=== PATIENT | female | born 1975 | race Caucasian/White ===

== ENCOUNTER 2020-09-13 07:45 | Outpatient (CLI) | payer BC, SELFPAY ==
--- NOTE | ~2020-09-13 | MM_ITS ---
EXAMINATION: MM screening olga lidia BI w chloé HISTORY: .. TECHNIQUE: Craniocaudal and mediolateral oblique 3-D tomosynthesis images were obtained and synthetic 2-D images were generated. CAD analysis was submitted and interpreted. COMPARISON: No prior mammogram is available for comparison at this institution. BREAST PARENCHYMAL COMPOSITION: FINDINGS: There is no evidence of suspicious mass, calcification, or architectural distortion to sugg est malignancy in either breast. There has been no suspicious interval change. IMPRESSION: 1. No mammographic evidence of malignancy. 2. Recommend routine screening mammography in one year. BI-RADS Category 1: Negative Reviewed, dictated and finalized at location A. COORDINATOR
== END 2020-09-13 07:46 | disposition home or self-care (01) ==
LOC: ANHIMG 07:47
PROVIDERS: PCP Internal Medicine; Visit Provider Obstetrics & Gynecology
DX: Z12.31 Encounter for screening mammogram for malignant neoplasm of breast (principal)
CPT/HCPCS: 77063; 77067

== ENCOUNTER 2021-03-16 10:18 | Outpatient (CLI) | payer OTHER, SELFPAY ==
[2021-03-16 10:41] LABS: Hematocrit 43.6 % (37.0-47.0); Hemoglobin 13.7 g/dL (12.0-15.0)
== END 2021-03-16 10:19 | disposition home or self-care (01) ==
LOC: ANHSURGERY 10:24
PROVIDERS: PCP Internal Medicine; Visit Provider Obstetrics & Gynecology
DX: Z01.818 Encounter for other preprocedural examination (principal); N95.0 Postmenopausal bleeding
CPT/HCPCS: 36415; 85014; 85018

== ENCOUNTER 2021-03-23 00:37 | Day surgery (SDC) | payer OTHER, SELFPAY ==
[2021-03-14 10:21] VITALS: BMI 31.8
--- NOTE | 2021-03-20 12:17 | PM.IMHP ---
H&P: HPI History of Present Illness Date/Time: 03/20/21 12:17 [age] year 0 is several years postmenopausal admitted for hysteroscopy and dilatation. she had episode of bleeding and underwent ultrasound. Thickened endometrium with irregularity was seen. Risks and benefits of this procedure reviewed including but not exclusive of , aspiration pneumonia, bleeding, transfusion, perforation injury to bowel bladder, ureters, or other internal organs with need for open laparotomy. She received the ACOG handout entitled hysteroscopy and dilatation and curettage respectively. She had all questions answered asked to proceed Chief Complaint: postmenopausal bleeding Review of Systems Review of Systems: All systems reviewed & are unremarkable except as noted in HPI and below PMFSH Family History Family History Mother Family history of psoriasis Family history of elevated blood lipids Other Cerebrovascular accident Diabetes mellitus Family history of malignant neoplasm Hypertension Social History Social History Smoking status: Never smoker Alcohol intake: current Substance use: never Spiritual care concerns: No Meds Home Medications and Allergies Home Medications Medication Instructions Recorded Confirmed Type Drenamin 3 tablet PO BID 03/14/21 03/14/21 History jeromy extract 3,000 mg PO DAILY 03/14/21 03/14/21 History organ concentrates [Adrenal] 160 mg PO DAILY 03/14/21 03/14/21 History prasterone (dhea) [DHEA] 25 mg PO DAILY 03/14/21 03/14/21 History Allergies Allergy/AdvReac Type Severity Reaction Status Date / Time No Known Allergies Allergy Mild Unverified 03/14/21 10:12 Exam Const: General: no acute distress Eyes: General: appearance normal, both eyes and all related structures Neck: Neck: supple and no JVD Thyroid: thyroid normal Resp: Effort & Inspection: normal respiratory effort Auscultation: clear to auscultation bilaterally Cardio: Rate: regular rate Rhythm: regular rhythm GI: Inspection: non-distended GI Palp: Yes Soft to palpation, No Tenderness to palpation present (GI) and No Guarding due to palpation present (GI) Auscultation: normal bowel sounds : General: Yes bladder normal to palpation External Female Exam: normal external appearance Speculum Exam - Vagina: normal vaginal discharge and No vaginal bleeding Speculum Exam - Cervix: nontender Bimanual exam- vagina & uterus: bladder normal to palpation and No Cervical tenderness present OB/external & speculum: No vaginal bleeding Skin: General skin exam: no rashes or lesions noted Extrem: General: normal to inspection and no edema Psych: Mental Status: mental status grossly normal Affect: normal affect Assessment and Plan Additional Plan impression: Postmenopausal bleeding Plan: Hysteroscopy / dilatation curettage
--- NOTE | 2021-03-23 05:53 | WPDHPUPDATE1 ---
History and Physical Update Update Date/Time: 03/23/21 05:53 History and Physical has been reviewed, including an updated exam of the patient. There are NO changes in the patient's condition. Risks, benefits, and alternatives have been discussed and questions answered. Patient agrees to proceed with procedure.
[2021-03-23] MEDS: LACTATED RINGERS 1,000 ML 30 ML IV CONT (12:15)
[2021-03-23] MEDS: ACETAMINOPHEN 500 MG TABLET 1000 MG PO (12:19)
--- NOTE | 2021-03-23 12:24 | WPDANESEPPF ---
Anes - Initial Pre Proc Eval Procedure: Operation Date: 03/23/21 13:30 Proposed Procedures p Hysteroscopy, Dilation and Curettage - Giovanni Blum MD Date/Time: 03/23/21 12:24 Surgeon: Giovanni Blum MD Pre Op Diagnosis: post menopausal bleeding Patient Data Age: 45 Gender: F Height: 1.57 m Weight: 79 kg Allergies Allergy/AdvReac Type Severity Reaction Status Date / Time No Known Allergies Allergy Mild Unverified 03/14/21 10:12 Home Medications Medication Instructions Recorded Confirmed Type Drenamin 3 tablet PO BID 03/14/21 03/14/21 History jeromy extract 3,000 mg PO DAILY 03/14/21 03/14/21 History organ concentrates [Adrenal] 160 mg PO DAILY 03/14/21 03/14/21 History prasterone (dhea) [DHEA] 25 mg PO DAILY 03/14/21 03/14/21 History hydrocodone-acetaminophen 1 tablet PO Q4H PRN #30 tablet 03/23/21 Rx Patient hx anesthesia problems: none Family hx anesthesia problems: none PMFSH Past Medical History Medical History (Updated 03/23/21 @ 12:23 by Chad Troncoso MD) Anemia GERD (gastroesophageal reflux disease) Hyperlipidemia Family History Family History Mother Family history of psoriasis Family history of elevated blood lipids Other Cerebrovascular accident Diabetes mellitus Family history of malignant neoplasm Hypertension Social History Social History Smoking status: Never smoker Alcohol intake: current Substance use: never Living arrangements: alone Spiritual care concerns: No Anes - Eval Final PreProcedure Day of Procedure 03/23/21 12:24 Patient weight: overweight Heart: regular rate and rhythm Lungs: clear to auscultation Airway: Mallampati scale class II Neurological: alert and oriented Last oral intake: >/= 8 hours ASA classification: II Emergent: no Anesthetic plan: proceed Anesthesia type and monitoring: general GIVS and standard monitoring Informed Consent: The patient's anesthetic plan and its attendant risks and benefits were discussed with the patient/family/POA. Questions were solicited and answers provided to the satisfaction of the patient/family/POA.
[2021-03-23 12:30] VITALS: BP 118/72; PULSE 66; RESP 14; TEMP 36.9; O2SAT 100; BMI 31.4
[2021-03-23 13:00] VITALS: BP 143/89; PULSE 68; RESP 16; O2SAT 96
--- NOTE | 2021-03-23 13:01 | P.OP_ITS ---
Procedure Note - Detailed Date of Procedure 03/23/21 Pre-op Diagnosis post menopausal bleeding Post-op Diagnosis same Procedure Performed Hysteroscopy / dilatation curettage Surgeon Giovanni Blum MD Anesthesia MAC and local Indications this is a 45-year-old patient who has not had a period in 2 years who e xperienced postmenopausal bleeding Findings a fair amount of the blood in the vagina without evidence of visual abnormalities Description of Procedure the patient was prepped and draped in normal sterile fashion placed in dorsal lithotomy position. Under excellent IV sedation weighted speculum placed in posterior fornix vagina. Anterior lip of the cervix grasped with a single-tooth tenaculum and 2.5cc 1% xylocaine anesthesia placed at 2, 4, and 8, 10:00 a.m. of the cervix. Uterus sounded to 9cm. Serial dilatation with fragmented dilators performed followed by passage of the 5mm visualizing hysteroscope. Normal saline was used as visualizing medium. Fair amount of old blood was present. After rinsing each fallopian tube os could be seen and no definitive abnormality seen. The uterus was then scraped over the entire 360? until a good grating sound was heard. When no further tissue could be removed the instruments removed. The patient tolerated the procedure well. All sponge, needle, instrument counts were correct. There were no immediate complications Estimated Blood Loss 5 Drains No Packing No Pathology yes Complications No immediate complications Condition stable Disposition same day
[2021-03-23 13:30] VITALS: BP 154/103; PULSE 66
[2021-03-23] MEDS: oxyCODONE HCL (*CRX) 5 MG TAB IR PO (13:32)
[2021-03-23 14:06] VITALS: BP 136/86; PULSE 64
== END 2021-03-23 14:30 | disposition home or self-care (01) ==
PROVIDERS: PCP Internal Medicine; Visit Provider Obstetrics & Gynecology
PROC: 0U5B8ZZ Destruction of Endometrium, Via Natural or Artificial Opening Endoscopic (ICD-10-PCS; CPT 58563; principal; 2021-03-23 13:30)
DX: N95.0 Postmenopausal bleeding (principal); N85.8 Other specified noninflammatory disorders of uterus; D64.9 Anemia, unspecified; K21.9 Gastro-esophageal reflux disease without esophagitis; E78.5 Hyperlipidemia, unspecified
CPT/HCPCS: 58558; 36415; 85014; 85018; 88305; A9270; J1100; J2250; J2405; J2704; J3010; J7120

== ENCOUNTER 2021-09-19 08:55 | Outpatient (CLI) | payer OTHER, SELFPAY ==
--- NOTE | ~2021-09-19 | MM_ITS ---
EXAMINATION: MM screening olga lidia BI w chloé HISTORY: Screening TECHNIQUE: Craniocaudal and mediolateral oblique 3-D tomosynthesis images were obtained and synthetic 2-D images were generated. CAD analysis was submitted and interpreted. COMPARISON: Comparison to multiple prior studies sequentially, with oldest reviewed study dated 11/2014. BREAST PARENCHYMAL COMPOSITION: Breast composed of scattered areas of fibroglandular density FINDINGS: There is no evidence of suspicious mass, calcification, or architectural distortion to sugg est malignancy in either breast. There has been no suspicious interval change. IMPRESSION: 1. No mammographic evidence of malignancy. 2. Recommend routine screening mammography in one year. BI-RADS Category 1: Negative Reviewed, dictated and finalized at location A. EYOR SYSTEM DISPATCHER
== END 2021-09-19 08:56 | disposition home or self-care (01) ==
LOC: ANHIMG 09:03
PROVIDERS: PCP Internal Medicine; Visit Provider Obstetrics & Gynecology
DX: Z12.31 Encounter for screening mammogram for malignant neoplasm of breast (principal)
CPT/HCPCS: 77063; 77067

== ENCOUNTER 2022-09-24 07:09 | Outpatient (CLI) | payer OTHER, SELFPAY ==
--- NOTE | ~2022-09-24 | MM_ITS ---
EXAMINATION: MM screening olga lidia BI w chloé HISTORY: Screening mammogram TECHNIQUE: Craniocaudal and mediolateral oblique 3-D tomosynthesis images were obtained and synthetic 2-D images were generated. CAD analysis was submitted and interpreted. COMPARISON: 09/19/2021, 09/13/2020, 09/09/2019 bilateral screening mammogram examinations BREAST PARENCHYMAL COMPOSITION: There are scattered areas of fibroglandular density. FINDINGS: There is no evidence of suspicious mass, calcification, or architectural distortion to sugg est malignancy in either breast. There has been no suspicious interval change. IMPRESSION: 1. No mammographic evidence of malignancy. 2. Recommend routine screening mammography in one year. BI-RADS Category 1: Negative Reviewed, dictated and finalized at location A. OR GRANTS OFFICER
== END 2022-09-24 07:10 | disposition home or self-care (01) ==
PROVIDERS: PCP Internal Medicine; Visit Provider Obstetrics & Gynecology
DX: Z12.31 Encounter for screening mammogram for malignant neoplasm of breast (principal)
CPT/HCPCS: 77063; 77067

== ENCOUNTER 2023-09-25 07:26 | Outpatient (CLI) | payer OTHER, SELFPAY ==
--- NOTE | ~2023-09-25 | MM_ITS ---
EXAMINATION: MM screening [facility] BI w chloé HISTORY: Screening mammogram TECHNIQUE: Craniocaudal and mediolateral oblique 3-D tomosynthesis images were obtained and synthetic 2-D images were generated. CAD analysis was submitted and interpreted. COMPARISON: 09/24/2022, 09/19/2021, 09/13/2020 BREAST PARENCHYMAL COMPOSITION: There are scattered areas of fibroglandular density. FINDINGS: No suspicious mass, calcification, or architectural distortion are identified in either shahram ast to suggest malignancy. There has been no suspicious interval change. IMPRESSION: 1. No mammographic evidence of malignancy. 2. Recommend routine screening mammography in one year. BI-RADS Category 1: Negative Reviewed, dictated and finalized at location A. OMETRIC TECHNICIAN
== END 2023-09-25 07:27 | disposition home or self-care (01) ==
PROVIDERS: PCP Internal Medicine; Visit Provider Obstetrics & Gynecology
DX: Z12.31 Encounter for screening mammogram for malignant neoplasm of breast (principal)
CPT/HCPCS: 77063; 77067

== ENCOUNTER 2024-10-12 07:14 | Outpatient (CLI) | payer OTHER, SELFPAY ==
--- NOTE | ~2024-10-12 | MM_ITS ---
EXAMINATION: MM screening olga lidia BI w chloé HISTORY: Screening TECHNIQUE: Craniocaudal and mediolateral oblique 3-D tomosynthesis images were obtained and synthetic 2-D images were generated. CAD analysis was submitted and interpreted. COMPARISON: Comparison to multiple prior studies sequentially, with oldest reviewed study dated 08/22. BREAST PARENCHYMAL COMPOSITION: Not dense: There are scattered areas of fibroglandular density. FINDINGS: There is no evidence of suspicious mass, calcification, or architectural distortion to sugg est malignancy in either breast. There has been no suspicious interval change. IMPRESSION: 1. No mammographic evidence of malignancy. 2. Recommend routine screening mammography in one year. BI-RADS Category 1: Negative Reviewed, dictated and finalized at location A. TIC WELDING OPERATOR
--- OUTSIDE RECORDS SUMMARY | 2024-10-14 15:32 | XMS_ITS | Referral Summary ---
Author Organization [facility] [address] [facility] Address [address] [place] [address] Care Team Providers Care Sound Editor Name Role Phone Hayden Monzon MD Primary Care Provider [phone] Allergies No known active allergies Medications silver sulfadiazine (SILVADENE, SSD) 1 % creamIndications: Partial thickness burn of abdomen, initial encounter Apply topically 2 (two) times a day 50 g 4 Active Active Problems Problem Noted Date Diagnosed Date Hypercholesterolemia 02/05/2014 Overview (12/25/2016): Hypercholesteremia Gastroesophageal reflux disease 02/05/2014 Overview (12/26/2016): GERD (gastroesophageal reflux disease) Atopic rhinitis 02/05/2014 Overview (12/26/2016): Allergic rhinitis Premature ovarian failure 02/05/2014 Overview (12/26/2016): Premature ovarian failure Immunizations Name Administration Dates Next Due Tdap 06/30/2024 Social History Tobacco Use Types Packs/Day Years Used Date Smoking Tobacco: Never Assessed Alcohol Use Standard Drinks/Week Comments Yes 0 (1 standard drink = 0.6 oz pur e alcohol) Comments Unknown Sex and Gender Information Value Date Recorded Sex Assigned at Not on file Legal Sex Female 8:02 PM DIRECTOR COMMERCIAL SALES Gender Identity Not on file Sexual Orientation Not on file Last Filed Vital Signs Vital Sign Reading Time Taken Comments Blood Pressure 124/74 06/30/2024 9:44 AM CDT Pulse 65 06/30/2024 9:44 AM CDT Temperature 36.6 ??C (97.8 ??F) 06/30/2024 9:44 AM C DT Respiratory Rate 18 06/30/2024 9:44 AM CDT Oxygen Saturation 97% 06/30/2024 9:44 AM CDT Inhaled Oxygen Concentration - - Weight 68 kg (150 lb) 06/30/2024 9:44 AM CDT Height 154.9 cm (5' 1 ) 06/30/2024 9:44 AM CDT Body Mass Index 28.34 06/30/2024 9:44 AM CDT Plan of Treatment Not on file Insurance [id number] [employer] Care Teams Sound Editor Relationship Specialty [place] [id number] [place] [address] PCP - General Internal Medicine 04/01/23
--- OUTSIDE RECORDS SUMMARY | 2024-10-14 15:32 | XMS_ITS | Clinical Summary ---
Author Organization [facility] Address [address] [place] [address] Phone Care Team Providers Care Manager Eligibility Name Role Phone Unavailable Unavailable Unavailable Reason for Visit and Chief Complaint abnormal Pap smear Pt. has a hx of LGSIL paps; she had a WNL pap in February but positve HR HPV persists. No c/os - The Chief Complaint is: pap only Plan of Treatment - OTHER - Last Documented On 09/05/2010 4:05PM ; [facility] Follow-up February for annual. Loestrin 24 Fe 1-20 MG-MCG TABS, 1 daily, 28 days, 12 refills Loestrin 24 Fe 1-20 MG-MCG TABS, 1 daily, 90 days, 3 refills - Last Documented On 09/05/2010 4:05PM ; [facility] ? ROUTINE COMPUTER SCIENCE TEACHER EXAMINATIONLab: THINPREP-TIS - Last Documented On 09/05/2010 4:05PM ; [facility] Pending Tests Order Diagnosis Results Due Ordering P jeff Lab THINPREP TIS PAP 10/05/10 LUIS ENRIQUE RAMOS M.D. Last Documented On 0 4:02PM ; [facility] Education and Decision Aids were provided during visit for: Patient counseling : I discu ssed with the patient possible causes of abnormal Pap smear and recommended evaluation. Potential treatments were also discussed Last Documented On 0 4:04PM ; [facility] Assessments Includes: Assessments from this encounter Findings - ABNORMAL PAP SMEAR and pos. HR HPV - Last Documented On 09/05/2010 4:05PM ; [facility] Instructions Includes: Instructions from this encounter Education and Decision Aids were provided during visit for: Patient counseling : I discu ssed with the patient possible causes of abnormal Pap smear and recommended evaluation. Potential treatments were also discussed Last Documented On 0 4:04PM ; [facility] Medical Equipment - Implanted Devices Includes: Current Devices No Medical Equipment Recorded Medications Includes: Medications discussed during this encounter and other current Medications New / Renewed during this visit LUIS ENRIQUE RAMOS M.D. on 09/05/2010 Loestrin 24 Fe 1-20 MG-MCG OR TABS Provider: LUIS ENRIQUE RAMOS M.D. 28 day supply: 28, 12 refills Diagnosis: Pharmacy: [facility] ([place] - [address] , [facility], [id number] - Last Documented On 09/05/2010 4:04PM By LUIS ENRIQUE RAMOS ; [facility] Loestrin 24 Fe 1-20 MG-MCG OR TABS Provider: LUIS ENRIQUE RAMOS M.D. 90 day supply: 90, 3 refills Diagnosis: [facility]acy: [facility] - [id number] , [facility], [id number] - Last Documented On 09/05/2010 4:05PM By LUIS ENRIQUE RAMOS ; [facility] Medications Administered Includes: Administered Medications from this encounter No Administered Medications Recorded Vital Signs Includes: Vital Signs from this encounter Vital Name 09/05/2010 03:15P Blood Pressure Sitting (mmHg) 120/80 Height (in) 61 Weight (lb) 177 Body Mass Index (kg/m2) 33.4 Body Surface Area (m2) 1.8 Last Documented: On 09/05/2010 3:07PM ; [facility] Results Includes: Results discussed during this encounter No Results Recorded For Specified Dates History of Present Illness Includes: History of Present Illness from this encounter No History of Present Illness Recorded Social History Description Last Updated Non-smoker 09/05/2010 Last Documented On 0 4:05PM ; [facility] Sexually active 09/05/2010 Last Documented On 0 4:05PM ; [facility] Smoking Status Unknown Procedures and Surgical History Includes: Procedures from this encounter Procedures Code Diagnosis Performing Provider Service L ocation Service Date history of abnormal Pap smear of cervix 08/30/2009 Last Documented On 0 3:05PM ; [facility] history of cervical Pap smear: low grade squamous intraepithelial lesion Last Documented On 0 3:05PM ; [facility] Cervical Pap Smear performed [id number] Last Documented On 0 4:02PM ; [facility] history of HPV DNA test (HC2) = positive Last Documented On 0 3:05PM ; [facility] Medical History Includes: Medical History addressed during this encounter Description Last Updated History of allergic rhinitis 09/05/2010 Last Documented On 0 4:05PM ; [facility] History of chronic reflux esophagitis Last Documented On 0 4:05PM ; [facility] History of human papilloma virus infecti on 09/05/2010 Last Documented On 0 4:05PM ; [facility] Contraception: 09/05/2010 Last Documented On 0 4:05PM ; [facility] LMP: 08/27/2010 09/05/2010 Last Documented On 0 4:05PM ; [facility] Last pap smear date 03/06/2010 09/05/2010 Last Documented On 0 4:05PM ; [facility] Result: normal 09/05/2010 Last Documented On 0 4:05PM ; [facility] Family History Includes: Family History addressed during this encounter Description Last Updated Family history of malignant female breas t neoplasm mom side 09/05/2010 Last Documented On 0 4:05PM ; [facility] Review of Systems Includes: Review of Systems from this encounter No Review of Systems Recorded Mental Status Includes: Mental Status from this encounter No Mental Status Recorded Functional Status Includes: Functional Status from this encounter No Functional Status Recorded Physical Exam Includes: Physical Exam from this encounter Allergies Includes: Active Allergies No Known Allergies Encounters Encounter Provider Location Date Check-In Time Check-Out Time Diagnosis PAP SMEAR ONLY LUIS ENRIQUE RAMOS M.D. [facility] VETERINARY PHYSIOLOGIST 09/05/20 10 2:47PM 4:06PM Abnormal Pap Smear Clinical Notes Includes: Clinical Notes from this encounter No Clinical Notes Recorded
--- OUTSIDE RECORDS SUMMARY | 2024-10-14 15:32 | XMS_ITS | Clinical Summary ---
Author Organization [facility] Care Team Providers Care R D Internship Name Role Phone Unavailable Primary Care Provider Unavailabl e Social History Tobacco Use Types Packs/Day Years Used Date Smoking Tobacco: Never Assessed Comments Unknown Sex and Gender Information Value Date Recorded Sex Assigned at Not on file Legal Sex Female 7:16 PM CDT Gender Identity Not on file Sexual Orientation Not on file Plan of Treatment Health Maintenance Due Date Last Done Comments Hepatitis C Virus (HCV) Screening 1975 TdaP Immunization 1975 Hepatitis B Immunization (1 of 3 - 19+ 3-dose series) 1994 Pap Smear 1996 Cervical Cancer Screening (CCS) 2005 HPV/Cotest 2005 Discussion re Starting/Frequency of Mammograms 2015 Colonoscopy 2020 Colorectal Cancer Screening 2020 Influenza Immunization (#1) 2024 SARS-COV-2 Immunization ( season) 2024 07/18/2021, 01/09/2021, 12/19/2020 Respiratory Syncytial Virus (RSV) Immunization (Adult) (1 - 1-dose 75+ series) 2050 Meningococcal Immunization (ACWY) Aged Out No longer eligible b ased on patient's age to complete this topic Pneumococcal Immunization Combined Aged Out No longer eligible b ased on patient's age to complete this topic Rotavirus Immunization Aged Out No lo nger eligible based on patient's age to complete this topic
--- OUTSIDE RECORDS SUMMARY | 2024-10-14 15:32 | XMS_ITS ---
Care Plan - [facility] Created on: October 14, 2024 LYNDSAY BRISENO : 1975 Sex: Female Author Organization [facility] Address [address] [place] [address] Phone Care Team Providers Care Choir Leader Name Role Phone Unavailable Unavailable Unavailable
--- OUTSIDE RECORDS SUMMARY | 2024-10-14 15:32 | XMS_ITS | Clinical Summary ---
Author Organization [facility] Address [address] [place] [address] Phone Care Team Providers Care Plate Gauger Name Role Phone Unavailable Unavailable Unavailable Reason for Visit and Chief Complaint * PHONE CALL Plan of Treatment - OTHER - Last Documented On 04/11/2010 5:31PM ; [facility] PHY ORDER/COMMENT can change to a more estrogenic pill; [facility]rel .5/35; not to worry as some people don;t bleed on pill you are on, but can change pill so you will have a cycle. Nortrel 0.5/35 (28) 0.5-35 MG-MCG TABS, 1 daily, 90 days, 2 refills - Last Documented On 04/11/2010 5:31PM ; [facility] Assessments Includes: Assessments from this encounter No Assessments Recorded Medical Equipment - Implanted Devices Includes: Current Devices No Medical Equipment Recorded Medications Includes: Medications discussed during this encounter and other current Medications New / Renewed during this visit LUIS ENRIQUE RAMOS M.D. on 04/11/2010 Nortrel 0.5/35 (28) 0.5-35 MG-MCG OR TABS Provider: LUIS ENRIQUE RAMOS M.D. 90 day supply: 90, 2 refills Diagnosis: [facility]acy: [facility] - [address] , [facility], [id number] - Last Documented On 04/11/2010 5:30PM By LUIS ENRIQUE RAMOS ; [facility] Medications Administered Includes: Administered Medications from this encounter No Administered Medications Recorded Results Includes: Results discussed during this encounter No Results Recorded For Specified Dates History of Present Illness Includes: History of Present Illness from this encounter No History of Present Illness Recorded Social History No Social History Recorded - Smoking Status Unknown Medical History Includes: Medical History addressed during this encounter No Medical History Recorded Family History Includes: Family History addressed during this encounter No Family History Recorded Review of Systems Includes: Review of Systems from this encounter No Review of Systems Recorded Mental Status Includes: Mental Status from this encounter No Mental Status Recorded Functional Status Includes: Functional Status from this encounter No Functional Status Recorded Physical Exam Includes: Physical Exam from this encounter No Physical Exam Recorded Allergies Includes: Active Allergies No Known Allergies Encounters Encounter Provider Location Date Check-In Time Check-Out Time Diagnosis * PHONE CALL LUIS ENRIQUE RAMOS M.D. [facility] VISUAL MERCHANDISER 0 3:29PM 11:59PM Clinical Notes Includes: Clinical Notes from this encounter No Clinical Notes Recorded
--- OUTSIDE RECORDS SUMMARY | 2024-10-14 15:32 | XMS_ITS | Clinical Summary ---
Author Organization [facility] Address [address] [place] [address] Phone Care Team Providers Care Electro Mechanical Technologist Name Role Phone Unavailable Unavailable Unavailable Reason for Visit and Chief Complaint * PHONE CALL Plan of Treatment - OTHER - Last Documented On 03/13/2010 4:50PM ; [facility] PHY ORDER/COMMENT Can sometimes skip a cycle on pill or can come at a later time; ok to continue with new pack on friday and if no cycle next month call and can always change the pill. - Last Documented On 03/13/2010 4:50PM ; [facility] Assessments Includes: Assessments from this encounter No Assessments Recorded Medical Equipment - Implanted Devices Includes: Current Devices No Medical Equipment Recorded Medications Administered Includes: Administered Medications from this encounter No Administered Medications Recorded Results Includes: Results discussed during this encounter No Results Recorded For Specified Dates History of Present Illness Includes: History of Present Illness from this encounter HPI LYNDSAY BRISENO is a 34 year old female. Pharmacy name:location: [facility]. Social History No Social History Recorded - [...] * PHONE CALL LUIS ENRIQUE RAMOS M.D. [facility] SQUARE DANCE CALLER 0 3:32PM 11:59PM Clinical Notes Includes: Clinical Notes from this encounter No Clinical Notes Recorded
--- OUTSIDE RECORDS SUMMARY | 2024-10-14 15:32 | XMS_ITS | Clinical Summary ---
Author Organization [facility] [place] [facility] Address [address] [place] [address] Care Team Providers Care Dye Reel Operator Helper Name Role Phone Hayden Monzon MD Primary Care Provider [phone] Allergies No known active allergies Medications silver sulfadiazine (SILVADENE, SSD) 1 % creamIndications: Partial thickness burn of abdomen, initial encounter Apply topically 2 (two) times a day 50 g Active Active Problems Problem Noted Date Diagnosed Date Hypercholesterolemia 02/05/2014 Overview (12/25/2016): Hypercholesteremia Gastroesophageal reflux disease 02/05/2014 Overview (12/26/2016): GERD (gastroesophageal reflux disease) Atopic rhinitis 02/05/2014 Overview (12/26/2016): Allergic rhinitis Premature ovarian failure 02/05/2014 Overview (12/26/2016): Premature ovarian failure Immunizations Name Administration Dates Next Due Tdap 06/30/2024 Surgical History Surgery Date Site/Laterality Comments OTHER SURGICAL HISTORY Tonsillitis: tonsillectomy OTHER SURGICAL HISTORY 2012 Hypertension: Medical History Medical History Date Comments Tonsillitis Tonsillitis Hypertension Hypertension; Co mments: Viola Xiong; Outcome: Resolved from Problem List Hx Other Medical 2011 HR HPV positve Family History Medical History Relation Name Comments Diabetes Brother Diabetes mellit us; Coronary artery disease Maternal Grandfather Coronary artery disease; Diabetes Maternal Grandfather Diabete s mellitus; Hyperlipidemia Maternal Grandfather Hyper lipidemia; Hypertension Maternal Grandfather Hyperte nsion; Thyroid disease Maternal Grandmother Thyr oid disease; Hyperlipidemia Mother's Brother 2 Hyperli pidemia; Prostate cancer Mother's Brother 2 Cancer , prostate; Cancer Other cancer; Relation Name Status Comments Brother Maternal Grandfather Maternal Grandmother Mother's Brother 1 Alive Mother's Brother 2 Other Social History Tobacco Use Types Packs/Day Years Used Date Smoking Tobacco: Never Assessed Alcohol Use Standard Drinks/Week Comments Yes 0 (1 standard drink = 0.6 oz pur e alcohol) Comments Unknown Sex and Gender Information Value Date Recorded Sex Assigned at Not on file Legal Sex Female 8:02 PM PLASTIC MIXER Gender Identity Not on file Sexual Orientation Not on file Obstetrics History Last Filed Vital Signs Vital Sign Reading Time Taken Comments Blood Pressure 124/74 06/30/2024 9:44 AM CDT Pulse 65 06/30/2024 9:44 AM CDT Temperature 36.6 ??C (97.8 ??F) 06/30/2024 9:44 AM CD T Respiratory Rate 18 06/30/2024 9:44 AM CDT Oxygen Saturation 97% 06/30/2024 9:44 AM CDT Inhaled Oxygen Concentration - - Weight 68 kg (150 lb) 06/30/2024 9:44 AM CDT Height 154.9 cm (5' 1 ) 06/30/2024 9:44 AM CDT Body Mass Index 28.34 06/30/2024 9:44 AM CDT Plan of Treatment Health Maintenance Due Date Last Done Comments Breast Cancer Screening-Mammogram 1975 Cervical Cancer Screening 1975 Colon Cancer Screening-Colonoscopy 1975 Depression Screening 1975 Hepatitis C Screening 1975 Hepatitis B Screening 1993 Regular Well Visit/Exam 18-64 1993 Covid-19 Vaccine ( - 2023-2 5 season) 2024 07/18/2021, 01/09/2021, 12/19/2020 Influenza Vaccine (#1) 2024 DTaP/Tdap/Td Vaccine (2 - Td or Tdap) 06/30/2034 06/30/2024 Pneumococcal vaccine <65 Aged Out No longer eligible based on patient's age to complete this topic Insurance [id number] [place] [address] CMR Care Teams Dye Reel Operator Helper Relationship Specialty [place] [id number] [id number] PCP - General Internal Medicine 04/01/23
--- OUTSIDE RECORDS SUMMARY | 2024-10-14 15:32 | XMS_ITS | Clinical Summary ---
Author Organization [facility] Address [address] [place] [address]. [place], [place] [id number] [place] [id number] Care Team Providers Care Edger Machine Setter Name Role Phone Unavailable Primary Care Provider Unavailabl e Social History Tobacco Use Types Packs/Day Years Used Date Smoking Tobacco: Never Assessed Comments Unknown Sex and Gender Information Value Date Recorded Sex Assigned at Not on file Legal Sex Female 4:14 PM CDT Gender Identity Not on file Sexual Orientation Not on file Plan of Treatment Health Maintenance Due Date Last Done Comments Cervical Cancer Screening Pa p Smear (Age 30 to 64) Every 3 Years 1975 Colorectal Cancer Screening Colonoscopy (10 Years) 1975 Annual Physical 1978 Hepatitis C 1993 DTaP, Tdap and Td Vaccines ( 1 - Tdap) 1994 Hepatitis B Vaccines (1 of 3 - 19+ 3-dose series) 1994 Cervical Cancer Screening Pa p with HPV Testing (Age 30 to 64) Every 5 Years 2005 Cervical Cancer Screening with HPV 2005 Mammogram Screening 2015 COVID-19 Vaccine (2023-2 5 season) 2024 Influenza Adult (#1) 2024 Meningococcal Vaccine Aged Out No rivas anika eligible based on patient's age to complete this topic Pneumococcal Vaccine: Pediat rics (0 to 5 Years) and At-Risk Patients (6 to 64 Years) Aged Out No longer eligible b ased on patient's age to complete this topic RSV Immunizations Under 20 Months Aged Out No longer eligible based on patient's age to complete this topic
--- OUTSIDE RECORDS SUMMARY | 2024-10-14 15:32 | XMS_ITS | Clinical Summary ---
Author Organization [facility] Address [address] [place] [address] Phone Care Team Providers Care Health It Specialist Name Role Phone Unavailable Unavailable Unavailable Reason for Visit and Chief Complaint The patient presents for a problem. She presents for a repeat pap. 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 She c/o of six days of bleeding on the [place] , and it is not covered by her insurance. She is dating a 46 year old man for one year who has had a vasectomy, abnormal Pap smear - The Chief Complaint is: REPAP Plan of Treatment - OTHER - Last Documented On 03/06/2010 3:58PM ; [facility] Follow-up 6 mos. annual and pap. Loestrin 24 Fe 1-20 MG-MCG TABS, 1 daily, 28 days, 12 refills - Last Documented On 03/06/2010 3:58PM ; [facility] Assessments Includes: Assessments from this encounter Findings - Cervical dysplasia - Last Documented On 03/06/2010 3:58PM ; [facility] Medical Equipment - Implanted Devices Includes: Current Devices No Medical Equipment Recorded Medications Includes: Medications discussed during this encounter and other current Medications New / Renewed during this visit LUIS ENRIQUE RAMOS M.D. on 03/06/2010 Loestrin 24 Fe 1-20 MG-MCG OR TABS Provider: LUIS ENRIQUE RAMOS M.D. 28 day supply: 28, 12 refills Diagnosis: Pharmacy: [facility] ([place] - [address] , [facility], [phone] - Last Documented On 09/05/2010 4:04PM By LUIS ENRIQUE RAMOS ; [facility] Past Medications on file Loestrin 24 Fe 1-20 MG-MCG O R TABS 09/05/2010 - 09/04/2011 Provider: LUIS ENRIQUE M TALSKY M.D. Diagnosis: Last Documented On 09/05/2010 4:04PM By LUIS ENRIQUE RAMOS ; [facility] Loestrin 24 Fe 1-20 MG-MCG O R TABS 09/05/2010 - 08/31/2011 Provider: LUIS ENRIQUE RAMOS M.D. Diagnosis: Last Documented On 09/05/2010 4:05PM By LUIS ENRIQUE RAMOS ; [facility] Nortrel 0.5/35 (28) 0.5-35 MG-MCG OR TABS 04/11/2010 - 01/06/2011 Provider: LUIS ENRIQUE RAMOS M.D. Diagnosis: Last Documented On 04/11/2010 5:30PM By LUIS ENRIQUE RAMOS ; [facility] Junel 10/11 1-20 MG-MCG OR TABS 03/07/2010 - 03/06/2011 Provider: LUIS ENRIQUE RAMOS M.D. Diagnosis: Last Documented On 03/07/2010 12:49PM By LUIS ENRIQUE RAMOS ; [facility] Macrobid 100 MG OR CAPS 04/12/2009 - 04/19/2009 Provid er: Diagnosis: Last Documented On 12/04/2009 8:25AM By YONY OCONNELL ; [facility] Medications Administered Includes: Administered Medications from this encounter No Administered Medications Recorded Vital Signs Includes: Vital Signs from this encounter Vital Name 03/06/2010 03:15P Blood Pressure Sitting (mmHg) 122/76 Pulse Rate-Sitting (bpm) 60 Respiration Rate (breaths/min) 20 Height (in) 61.5 Weight (lb) 156 Body Mass Index (kg/m2) 29.0 Body Surface Area (m2) 1.7 Last Documented: On 03/06/2010 3:09PM ; [facility] Results Includes: Results discussed during this encounter No Results Recorded For Specified Dates History of Present Illness Includes: History of Present Illness from this encounter GINGER BRISENO is a 34 year old female. Patient comes with a history of abnormal pap smear. See details of Pap smear results below. - Feeling fine. - Reproductive system abnormalities LONG CYCLES, ANXIETY-CRYING DURING CYCLES, MOOD SWINGS, HER BC ISN'T COVERED ON INSURANCE - No pelvic pain - Normal menses - No vaginal discharge Social History Description Last Updated Sexually active 09/05/2010 Last Documented On 0 3:06PM ; [facility] Alcohol OCCASIONAL 12/04/2009 Last Documented On 0 3:06PM ; [facility] Caffeine use 12/04/2009 Last Documented On 0 3:06PM ; [facility] Daily chocolate consumption 12/04/2009 Last Documented On 0 3:06PM ; [facility] Drug use by a sexual partner does not in clude intravenous drug use 12/04/2009 Last Documented On 0 3:06PM ; [facility] Exercising regularly 12/04/2009 Last Documented On 0 3:06PM ; [facility] Not using intravenous drugs 12/04/2009 Last Documented On 0 3:06PM ; [facility] Occupation [employer] [facility] #[id number] 12/04/2009 Last Documented On 0 3:06PM ; [facility] Patient has not had sex unde r the influence of alcohol or drugs in the last year 12/04/2009 Last Documented On 0 3:06PM ; [facility] Christianity: Jain 12/04/2009 Last Documented On 0 3:06PM ; [facility] Orthodoxy affiliation 12/04/2009 Last Documented On 0 3:06PM ; [facility] Sexual partner has not had sex with pros titutes 12/04/2009 Last Documented On 0 3:06PM ; [facility] Single 12/04/2009 Last Documented On 0 3:06PM ; [facility] The racial background 12/04/2009 Last Documented On 0 3:06PM ; [facility] The racial background is 12/04 Last Documented On 0 3:06PM ; [facility] Using condoms 12/04/2009 Last Documented On 0 3:06PM ; [facility] Smoking Status Unknown Procedures and Surgical History Includes: Procedures from this encounter Procedures Code Diagnosis Performing Provider Service L ocation Service Date Repeat pap smear in 6 months Pap and annual Last Documented On 0 3:58PM ; [facility] history of abnormal Pap smear of cervix 08/30/2009 Last Documented On 0 3:17PM ; [facility] history of cervical Pap smear: low grade squamous intraepithelial lesion Last Documented On 0 3:17PM ; [facility] Cervical Pap Smear performed [id number] Last Documented On 0 3:58PM ; [facility] Medical History Includes: Medical History addressed during this encounter Description Last Updated History of cervical dysplasia 03/06/2010 Last Documented On 0 3:58PM ; [facility] History of human papilloma virus infecti on 08/15/08 ASCUS POSITIVE HR HPV 03/06/2010 Last Documented On 0 3:58PM ; [facility] Last pap smear date 08/30/2009 0 Last Documented On 0 3:58PM ; [facility] Result: abnormal LGSIL 03/06/2010 Last Documented On 0 3:58PM ; [facility] LMP: 02/12/2010 03/06/2010 Last Documented On 0 3:58PM ; [facility] 0 03/06/2010 Last Documented On 0 3:58PM ; [facility] GONADOTROPIN-RESISTANT OVARIAN SYNDROME 12/04/2009 Last Documented On 0 3:06PM ; [facility] 1 miscarriage(s) 12/04/2009 Last Documented On 0 3:06PM ; [facility] A cholesterol test was high 12/04/2009 Last Documented On 0 3:06PM ; [facility] A Pap smear was performed 12/04/2009 Last Documented On 0 3:06PM ; [facility] An HIV test was not performed 12/04/2009 Last Documented On 0 3:06PM ; [facility] History of trichomoniasis 2005 0 Last Documented On 0 3:06PM ; [facility] Oral contraceptives NECON 0 Last Documented On 0 3:06PM ; [facility] Previous hospitalizations T&A AT AGE 14 12/04/2009 Last Documented On 0 3:06PM ; [facility] Previously diagnosed with a STD 12/05/19 10 Last Documented On 0 3:06PM ; [facility] Family History Includes: Family History addressed during this encounter Description Last Updated Family history of Diabetes 12/04/2009 Last Documented On 0 3:06PM ; [facility] Family history of thyroid disease 2009 Last Documented On 0 3:06PM ; [facility] Family medical history of high blood pre ssure 12/04/2009 Last Documented On 0 3:06PM ; [facility] Family medical history of High Cholester ol 12/04/2009 Last Documented On 0 3:06PM ; [facility] Heart disease 12/04/2009 Last Documented On 0 3:06PM ; [facility] Review of Systems Includes: Review of Systems [...] Location Date Check-In Time Check-Out Time Diagnosis RE-PAP LUIS ENRIQUE RAMOS M.D. [facility] EXTRUSION PRESS ADJUSTER 0 3:03PM 3:59PM Cervical Dysplasia Clinical Notes Includes: Clinical Notes from this encounter No Clinical Notes Recorded
--- OUTSIDE RECORDS SUMMARY | 2024-10-14 15:32 | XMS_ITS | Clinical Summary ---
Author Organization [facility] Address [address] [place] [address] Phone Care Team Providers Care Refinery Operator Name Role Phone Unavailable Unavailable Unavailable Reason for Visit and Chief Complaint * PHONE CALL Plan of Treatment - OTHER - Last Documented On 03/07/2010 12:49PM ; [facility] PHY ORDER/COMMENT notify pt. Rx sent to pharmacy 10/11 1-20 MG-MCG TABS, 1 daily, 28 days, 12 refills - Last Documented On 03/07/2010 12:49PM ; [facility] Assessments Includes: Assessments from this encounter No Assessments Recorded Medical Equipment - Implanted Devices Includes: Current Devices No Medical Equipment Recorded Medications Includes: Medications discussed during this encounter and other current Medications New / Renewed during this visit LUIS ENRIQUE RAMOS M.D. on 03/07/201010/11 1-20 MG-MCG OR TABS Provider: LUIS ENRIQUE RAMOS M.D. 28 day supply: 28, 12 refills Diagnosis: Pharmacy: [facility] DO NOT USE - [id number] [facility], [id number] - Last Documented On 03/07/2010 12:49PM By LUIS ENRIQUE RAMOS ; [facility] Medications Administered Includes: Administered Medications from this encounter No Administered Medications Recorded Results Includes: Results discussed during this encounter No Results Recorded For Specified Dates History of Present Illness Includes: History of Present Illness from this encounter HPI LYNDSAY BRISENO is a 34 year old female. Pharmacy name:~location: [facility] fax number [phone]. Social History No Social History Recorded - [...] Time Check-Out Time Diagnosis * PHONE CALL LUSI ENRIQUE RAMOS M.D. [facility] SIGNALS COLLECTOR/ANALYST 0 11:04AM 11:59PM Clinical Notes Includes: Clinical Notes from this encounter No Clinical Notes Recorded
--- OUTSIDE RECORDS SUMMARY | 2024-10-14 15:32 | XMS_ITS ---
Author Organization [facility] Address [address] [place] [address] Phone Care Team Providers Care Aircraft Electrical Systems Specialist Name Role Phone Unavailable Unavailable Unavailable Plan of Treatment Education and Decision Aids were provided during visit for: Patient counseling : I discu ssed with the patient possible causes of abnormal Pap smear and recommended evaluation. Potential treatments were also discussed Last Documented On 0 4:04PM ; [facility] Assessments Includes: Assessments for all patient encounters Findings Encounter Date ABNORMAL PAP SMEAR and pos. HR HPV PAP S MEAR ONLY with LUIS ENRIQUE RAMOS M.D. 09/05/2010 Last Documented On 0 4:05PM ; [facility] Cervical dysplasia RE-PAP with LUIS ENRIQUE Granda 03/06/2010 Last Documented On 0 3:58PM ; [facility] Instructions Includes: Instructions for all patient encounters Education and Decision Aids were provided during visit for: Patient counseling : I discu ssed with the patient possible causes of abnormal Pap smear and recommended evaluation. Potential treatments were also discussed Last Documented On 0 4:04PM ; [facility] Medical Equipment - Implanted Devices Includes: Current and historical Devices No Medical Equipment Recorded Medications Includes: Current and historical Medications Past Medications on file Loestrin 24 Fe 1-20 MG-MCG O R TABS 09/05/2010 - 09/04/2011 Provider: LUIS ENRIQUE RAMOS M.D. Diagnosis: Last Documented On 09/05/2010 4:04PM By LUIS ENRIQUE RAMOS ; [facility] Loestrin 24 Fe 1-20 MG-MCG O R TABS 09/05/2010 - 08/31/2011 Provider: LUIS ENRIQUE RAMOS M.D. Diagnosis: Last Documented On 09/05/2010 4:05PM By LUIS ENRIQUE RAMOS ; [facility] Nortrel 0.5/35 (28) 0.5-35 MG-MCG OR TABS 04/11/2010 - 01/06/2011 Provider: LUIS ENRIQUE RAMOS M.D. Diagnosis: Last Documented On 04/11/2010 5:30PM By LUIS ENRIQUE RAMOS ; [facility] Junel 10/11 1-20 MG-MCG OR TABS 03/07/2010 - 03/06/2011 Provider: LUIS ENRIQUE RAMOS M.D. Diagnosis: Last Documented On 03/07/2010 12:49PM By LUIS ENRIQUE RAMOS ; [facility] Loestrin 24 Fe 1-20 MG-MCG O R TABS 03/06/2010 - 09/05/2010 Provider: LUIS ENRIQUE RAMOS M.D. Diagnosis: Last Documented On 09/05/2010 4:04PM By LUIS ENRIQUE RAMOS ; [facility] Macrobid 100 MG OR CAPS 04/12/2009 - 04/19/2009 Provid er: Diagnosis: Last Documented On 12/04/2009 8:25AM By YONY OCONNELL ; [facility] Medications Administered Includes: Administered Medications in patient's chart No Administered Medications Recorded Results Includes: Results from 10/14/2023 through 10/14/2024 No Results Recorded For Specified Dates History of Present Illness History of Present Illness not supported for this document type No History of Present Illness Recorded Social History Description Last Updated Non-smoker 09/05/2010 Last Documented On 0 4:05PM ; [facility] Sexually active 09/05/2010 Last Documented On 0 4:05PM ; [facility] Alcohol OCCASIONAL 12/04/2009 Last Documented On 0 8:40AM ; [facility] Caffeine use 12/04/2009 Last Documented On 0 8:40AM ; [facility] Daily chocolate consumption 12/04/2009 Last Documented On 0 8:40AM ; [facility] Drug use by a sexual partner does not in clude intravenous drug use 12/04/2009 Last Documented On 0 8:40AM ; [facility] Exercising regularly 12/04/2009 Last Documented On 0 8:40AM ; [facility] Not using intravenous drugs 12/04/2009 Last Documented On 0 8:40AM ; [facility] Occupation [employer] [phone] 12/04/2009 Last Documented On 0 8:40AM ; [facility] Patient has not had sex unde r the influence of alcohol or drugs in the last year 12/04/2009 Last Documented On 0 8:40AM ; [facility] Buddhist: Jehovah'S Witness 12/04/2009 Last Documented On 0 8:40AM ; [facility] Jainism affiliation 12/04/2009 Last Documented On 0 8:40AM ; [facility] Sexual partner has not had sex with pros titutes 12/04/2009 Last Documented On 0 8:40AM ; [facility] Single 12/04/2009 Last Documented On 0 8:40AM ; [facility] The racial background 12/04/2009 Last Documented On 0 8:40AM ; [facility] The racial background is 12/04 Last Documented On 0 8:40AM ; [facility] Using condoms 12/04/2009 Last Documented On 0 8:40AM ; [facility] Smoking Status Unknown Medical History Includes: Medical History in patient's chart Description Last Updated History of allergic rhinitis 09/05/2010 Last Documented On 0 4:05PM ; [facility] History of chronic reflux esophagitis Last Documented On 0 4:05PM ; [facility] History of human papilloma virus infecti on 09/05/2010 Last Documented On 0 4:05PM ; [facility] Contraception: 09/05/2010 Last Documented On 0 4:05PM ; [facility] LMP: 08/27/2010 09/05/2010 Last Documented On 0 4:05PM ; [facility] Last pap smear date 03/06/2010 09/05/2010 Last Documented On 0 4:05PM ; [facility] Result: normal 09/05/2010 Last Documented On 0 4:05PM ; [facility] History of cervical dysplasia 03/06/2010 Last Documented On 0 3:58PM ; [facility] Result: abnormal LGSIL 03/06/2010 Last Documented On 0 3:58PM ; [facility] 0 03/06/2010 Last Documented On 0 3:58PM ; [facility] GONADOTROPIN-RESISTANT OVARIAN SYNDROME 12/04/2009 Last Documented On 0 8:40AM ; [facility] 1 miscarriage(s) 12/04/2009 Last Documented On 0 8:40AM ; [facility] A cholesterol test was high 12/04/2009 Last Documented On 0 8:40AM ; [facility] A Pap smear was performed 12/04/2009 Last Documented On 0 8:40AM ; [facility] An HIV test was not performed 12/04/2009 Last Documented On 0 8:40AM ; [facility] History of trichomoniasis 2005 0 Last Documented On 0 8:40AM ; [facility] Oral contraceptives NECON 0 Last Documented On 0 8:40AM ; [facility] Previous hospitalizations T&A AT AGE 14 12/04/2009 Last Documented On 0 8:40AM ; [facility] Previously diagnosed with a STD 12/05/19 10 Last Documented On 0 8:40AM ; [facility] Family History Includes: Family History in patient's chart Description Last Updated Family history of malignant female breas t neoplasm mom side 09/05/2010 Last Documented On 0 4:05PM ; [facility] Family history of Diabetes 12/04/2009 Last Documented On 0 8:40AM ; [facility] Family history of thyroid disease 2009 Last Documented On 0 8:40AM ; [facility] Family medical history of high blood pre ssure 12/04/2009 Last Documented On 0 8:40AM ; [facility] Family medical history of High Cholester ol 12/04/2009 Last Documented On 0 8:40AM ; [facility] Heart disease 12/04/2009 Last Documented On 0 8:40AM ; [facility] Review of Systems Review of Systems not supported for this document type No Review of Systems Recorded Mental Status No Mental Status Recorded Functional Status No Functional Status Recorded Physical Exam Physical Exam not supported for this document type No Physical Exam Recorded Allergies Includes: Active, inactive, and resolved Allergies No Known Allergies Clinical Notes Includes: Signed Clinical Notes starting from 10/11/2022 No Clinical Notes Recorded
--- OUTSIDE RECORDS SUMMARY | 2024-10-14 15:33 | XMS_ITS | Continuity of Care Document ---
Author Organization [facility] Address [address] [place] [address] Phone Care Team Providers Care Second Helper Name Role Phone Hayden Monzon MD Unavailable Unavailable Allergies, Adverse Reactions, Alerts Substance Reaction Status Criticality atorvastatin Active No Information Medications Medication Instructions Dosage Effective Dates (start - stop) Status Comments amoxicillin 500 mg capsule take 1 capsule by oral route 3 times every day for 10 days - No Longer Active Procedures Procedure Date FALL RISK ASSESSMENT DOC'D PRES/ABSN URINE INCON ASSESS PREVENTATIVE-EST: 40-64 BODY MASS INDEX DOCD SYST BP LT 130 MM HG DIAST BP 80-89 MM HG FALL RISK ASSESSMENT DOC'D PRES/ABSN URINE INCON ASSESS Pt inelig neg scrn depres OFFICE [id number] BODY MASS INDEX DOCD SYST BP LT 130 MM HG DIAST BP 80-89 MM HG FALL RISK ASSESSMENT DOC'D PRES/ABSN URINE INCON ASSESS CBC, INC PLATELETS AND DIFFERENTIAL COMPREHEN METABOLIC PANEL CMP HEMOGLOBIN A1C HGA1C, GLYCO LIPID PANEL MAGNESIUM (MG), SERUM VITAMIN B12 (SERUM) VITAMIN D, 25-HYDROXY URINALYSIS, DIPSTICK (UA) - Office Lab O ROUTINE VENIPUNCTURE PREVENTATIVE-EST: 40-64 BODY MASS INDEX DOCD SYST BP LT 130 MM HG DIAST BP 80-89 MM HG FALL RISK ASSESSMENT DOC'D PRES/ABSN URINE INCON ASSESS Pt inelig neg scrn depres Brief Emotional/Behavioral A ssessment, With Scoring/Doct, Per Stndrd Instrument Pt inelig neg scrn depres OFFICE [id number] BODY MASS INDEX DOCD SYST BP LT 130 MM HG DIAST BP 80-89 MM HG FALL RISK ASSESSMENT DOC'D PRES/ABSN URINE INCON ASSESS OFFICE [id number] BODY MASS INDEX DOCD SYST BP LT 130 MM HG DIAST BP 80-89 MM HG FALL RISK ASSESSMENT DOC'D PRES/ABSN URINE INCON ASSESS COMPREHEN METABOLIC PANEL CMP LIPID PANEL THYROID STIMULATION HORMONE(TSH) 2022 ROUTINE VENIPUNCTURE EKG (ELECTROCARDIOGRAM) OFFICE [id number] BODY MASS INDEX DOCD SYST BP LT 130 MM HG DIAST BP 80-89 MM HG SCREENING COLONOSCOPY (NOT HIGH RISK) Fe FALL RISK ASSESSMENT DOC'D PRES/ABSN URINE INCON ASSESS OFFICE [id number] BODY MASS INDEX DOCD SYST BP LT 130 MM HG DIAST BP 80-89 MM HG Pt inelig neg scrn depres CBC, INC PLATELETS AND DIFFERENTIAL COMPREHEN METABOLIC PANEL CMP LIPID PANEL URINALYSIS, DIPSTICK (UA) - Office Lab O ROUTINE VENIPUNCTURE FALL RISK ASSESSMENT DOC'D PRES/ABSN URINE INCON ASSESS PREVENTATIVE-NEW: BODY MASS INDEX DOCD SYST BP LT 130 MM HG DIAST BP 80-89 MM HG Advance Directives Directive Yes / No Effective Date File Name Life Support Not Answered N/A N/A Intubation Not Answered N/A N/A Antibiotics Not Answered N/A N/A IV Fluid Support Not Answered N/A N/A Tube Feed Not Answered N/A N/A Other Directive N/A N/A WARNING:The information contained in this section is historical and is provided for information only and does not constitute a legal document or any assurance that the information is still accurate. Please verify the information with the delcid of the legal document before using it for clinical purposes. Encounters Encounter Description Practice Location Reason(s) For Visit Diagnoses Date Provider Providers Copied on Encounter PREVENTATIVE -EST: [facility], [address], [place], [place], [address] , tel: [phone] [facility] Chronic Conditions (chief complaint)c hronic conditions (chief complaint) Encounter for annual health examinationObesity (BMI 30.0-34.9)Hyperlip idemia, unspecified hyperlipidemia typeEncounter for immunization 4 Nicolás Blake. [address] [place] [address], [address] , [place], [place], [address] , [place]. tel: [phone] Referring Provider: Hayden Monzon, [address] [place] [address] [address], [place], [address] . tel:[phone] OFFICE [id number]-[id number]-EF [employer], [address], [place], [place], [address] , tel: [phone] [facility] chest pressure (chief complaint)l eft ear (chief complaint)l eft elbow pain (chief complaint)C hronic Conditions (chief complaint) Body mass index [BMI] 30.0-30.9, adultLeft otitis media, unspecified otitis media typeTenderness of chest wallLeft elbow tendonitisOther and unspecified hyperlipidemia 4 Amanda Sacledo. [id number] [place] [address], [address] , [place], [place], [address] , . tel: [phone] Referring Provider: Hayden Monzon [address] [place] [address] [address] , [place], [address] . tel:[phone] PREVENTATIVE -EST: 40-64 [facility], [address], [place], [place], [address] , tel: [phone] [facility] preventive exam (chief complaint)l eg pain (chief complaint)C hronic Conditions (chief complaint) Body mass index [BMI] 30.0-30.9, adultEncounter for general adult medical examination without abnormal findingsPain in right legPain in left legGrief 3 Amanda Salcedo. [address] [place] [address], [address] , [place], [place], [address] , . tel: [phone] Referring Provider: Hayden Monzon [address] [place] [address] [address] , [place], [address] . tel:[phone] OFFICE [id number] TAILED [facility], [address], [place], [place], [address] , tel: [phone] [facility] uti/sinus (chief complaint)l oss of mother (chief complaint) Body mass index [BMI] 29.0-29.9, adultSinusitis, unspecified chronicity, unspecified locationGrief 3 Amanda Salcedo. [address] [place] [address], [address] , [place], [place], [address] , . tel: [phone] Referring Provider: Hayden Monzon [address] [place] [address] [address], [place], [address] . tel:[phone] [facility], [address], [place], [place], [address] , [place] tel: [phone] [facility] Chronic fatigue, unspecified 3 Nicolás Blake. [address] [place] [address], [address], [place], [place], [address] , . tel: [phone] OFFICE [id number] [facility]STO [facility], [address], [place], [place], [address] , tel: [phone] [facility] Chronic Conditions (chief complaint) Acute midline thoracic back painBody mass index [BMI] 29.0-29.9, adult 3 Nicolás Blake. [address] [place] [address], [address], [place], [place], [address] , . tel: [phone] Referring Provider: Hayden Monzon, [address] [place] [address] [address], [place], [address] . tel:[phone] [facility], [address], [place], [place], [address] , tel: [phone] [facility] Chest pain, unspecified type 3 Nicolás Blake. [address] [place] [address], [address], [place], [place], [address] , . tel: [phone] OFFICE [id number]-QC MICHAEL [facility], [address], [place], [place], [address] , tel: [phone] [facility] Chronic Conditions (chief complaint) Chest pain, unspecified typeHyperlipidemia , unspecified hyperlipidemia typeFatigue, unspecified typeAnxiety 3 Nicolás Blake. [address] [place] [address], [address], [place], [place], [address] , . tel: [phone] Referring Provider: Hayden Monzon [address] [place] [address] [address], [place], [address] . tel:[phone] [facility], [address], [place], [place], [address] , tel: [phone] [facility] No Information [address]. [address] [facility], [address], [place], [place], [address] , [place]. tel: [phone] Referring Provider: Hayden Monzon, [address] [place] [address] [address], [place], [address] . tel:[phone] OFFICE [id number]-PA PANDED [facility], [address], [place], [place], [address] , tel:[phone] [facility] acute problem (chief complaint) Constipation, unspecified constipation typeScreening for colon cancer 3 Nicolás Blake. [address] [place] [address], [address], [place], [place], [address] , . tel:[phone] Referring Provider: Hayden Monzon, [address] [place] [address] [address], [place], [address] . tel:[phone] PREVENTATIVE -NEW: 40-64 [facility], [address], [place], [place], [address] , tel:[phone] [facility] preventive exam (chief complaint)C hronic Conditions (chief complaint) Body mass index [BMI] 28.0-28.9, adultEncounter for general adult medical examination without abnormal findingsMixed hyperlipidemiaSeas onal allergies 2 Amanda Salcedo. [address] [place] [address], [address] , [place], [place], [address] , . tel:[phone] Referring Provider: Hayden Monzon, [address] [place] [address] [address], [place], [address] . tel:[phone] Family History Family Member Type Diagnosis Age At Onset Mother Problem Stroke Mother Problem Hypertension Mother Problem Eczema Mother Problem Coronary artery disease Mother Problem (finding) Mother Problem Psoriasis Mother Problem Migraine headaches Immunizations Vaccine Date Status Comments Fluzone Quad, preservative f ree, split virus, 0.5mL dosage administered Source: Source Unspecified Pfizer (Bivalent Booster) CO VID Vac, 30mcg/0.3mL, 12+ years administered Source: Sour ce Unspecified Fluzone Quad, preservative f ree, split virus, 0.5mL dosage administered Source: Source Unspecified Get Fractal (Diluent Reconstitute d) COVID19 Vaccine, 0.3mL per dose, 2 doses, administered 21 days apart administered Source: Source Unspe cified Get Fractal (Diluent Reconstitute d) COVID19 Vaccine, 0.3mL per dose, 2 doses, administered 21 days apart administered Source: Source Unsronna aguilar Payers Payer name Insurance type Covered constitution party ID Kapil patel(s) SupportBee JESSIKA [id number] Social History Type Description Quantity Date Captured Comments Alcohol Use Details Unknown Caffeine Use Details Tobacco Use Status Current non-smoker Smoking Status Never smoker Non-Smoking Tobacco Use Details : No Details Available : No Details Available Sex Female Vital Signs Date / Time: Height Weight BMI Pulse Rate Blood Pressure Temperature Respiratory Rate Body Surface Area Head Circumference Head Circ. Percentile Wt./Aries. Percentile BMI percentile Pulse Ox Inhaled Ox 2:46 PM 61.00 in 73.482 kg (162.00 lbs) 30.6 1 kg/m eter (2) 98 /min 124/85 mm[Hg] 98.90 F 96 % Chief Complaint And Reason For Visit From encounter dated '07/26/2024 15:00'. Chronic Conditions (chief complaint). Description: *See Chronic Conditions HPI chronic conditions (chief complaint). Description: *See Chronic Conditions HPI Reason For Referral Reason For Referral No Information Plan Of Treatment Date Type Action Status Goal Dietary manageme nt education, guidance, and counseling completed Goal Dietary manageme nt education, guidance, and counseling completed Goal Dietary manageme nt education, guidance, and counseling completed Goal Dietary manageme nt education, guidance, and counseling completed Goal Dietary manageme nt education, guidance, and counseling completed Appointment Danyelle Marroquin BOOKED Patient Education High Cholesterol: Care Instructions completed Future Order: Lab Order Comprehe nsive Metabolic (CMP) ([id number]), Ordered on: Ordered Future Order: Lab Order Lipid Pa evita W/Reflex To Direct LDL ([id number]), Ordered on: Ordered Future Order: Lab Order CBC AUTO DIFF ([id number]), Ordered on: Ordered Future Order: Lab Order Vitamin B12 ([id number]), Ordered on: Ordered History Of Present Illness Encounter Date Complaint History Of Prese nt Illness Chronic Conditions *See Chronic Conditions HPI chronic conditions *See Chronic Conditions HPI chest pressure She states she h ad a 'hard fall' a couple of weeks ago, landing on her buttocks. She states it 'carlton' the rest of her and she has a little pressure on ribs. She states she does not have any shortness of breath. She 'just wanted to be sure ' it was okay left elbow pain she states she c arried water coolers in each hand- 'several gallons'. She notes she has discomfort at left elbow. She has not used nsaids or ice. left ear States for 2 day s she has left ear pain. No fever. Chronic Conditions *See Chronic Conditions HPI preventive exam The patient stat es using none for control. Patient's menses is absent. Negative for dysmenorrhea and menorrhagia. Negative for: breast discharge, breast lump(s) and breast pain. Positive for: breast self exam. Associated symptoms include anxiety, depression and difficulty falling sleep. Pertinent negatives include abnormal bleeding (hematology), abnormal vaginal bleeding, nocturia, sexual dysfunction, urinary incontinence, urinary urgency, vaginal discharge and vaginal itching. Diet gluten-free. Patient reports getting 250 mg/day calcium from dietary sources. Patient is getting adequate sunlight exposure. Patient does not take multivitamins. Patient does not take Folic acid.The patient states Patient's exercise level is moderate and frequency is 3-4 times/week. The patient does not use tobacco. The patient has not been exposed to passive smoke. The patient has not been exposed to passive vaping. The patient does drink alcohol. Additional information: She is here today for a preventive exam. She is single She does not smoke, rare alcohol use. She sees shirt creaser for well woman exams, states she had mammogram earlier this year at [facility]. She declines further vaccines, had 2 COVID vaccines and one booster. She had a colonoscopy in Oct 2022. She works in construction, outside much of the time.. leg pain She notes she sherman s bilateral leg pain, stands on her feet all day. She thinks her water intake is okay. Chronic Conditions *See Chronic Conditions HPI uti/sinus The symptoms beg an 7 to 10 days ago. She notes she called her 'teledoc' through her employer and was given course of Augmentin about 4 days ago. She states her symptoms are persisting. She states her previous provider used to give her 'a steroid shot' with antibiotic. She notes she had negative COVID test today. She notes she has pain across her forehead, behind her eyes She notes warm towel over forehead and on her neck is comforting. loss of mother She lost her mot her about 4 months ago and is continuing to feel sad, tearful. She denies thoughts of hurting herself or others. She states she would be interested in grief counseling/group. Chronic Conditions *See Chronic Conditions HPI Chronic Conditions *See Chronic Conditions HPI acute problem Chief complaint: constipation.Symptoms started 2-3 weeks ago; are moderate; occur intermittently; are stable. Here after she thinks a dietary indiscretion caused her to have constipation. Took Metamucil and Dulcolax and then had the opposite problem. Chronic Conditions *See Chronic Conditions HPI preventive exam The patient stat es she uses none for control. Negative for: breast discharge, breast lump(s) and breast pain. Positive for: breast self exam. Pertinent negatives include abnormal bleeding (hematology), abnormal vaginal bleeding, anxiety, depression, difficulty falling sleep, nocturia, sleep disturbances, urinary incontinence, urinary urgency, vaginal discharge and vaginal itching. Diet gluten-free. She reports getting calcium from dietary sources. She does not take Vitamin D. She does not take multivitamins. She does not take Folic acid. The patient does not use tobacco. She has not been exposed to passive smoke. She has not been exposed to passive vaping. Additional information: She is here today to establish as a patient of this practice. She notes her previous provider retired- he was in [facility]. She is single. She works as a laborer mine. She does not smoke, drinks a mixed drink about 3 times/year. She had 2 COVID vaccines and ne booster. She had flu vaccine earlier this month. She saw gym and had Pap and mammogram in Aug 2021- scheduled to return in September 2022. She states she went to [facility] for mammogram.. Functional Status Date Functional Assessmen t No Information Instructions Date Instruction Additional Infor javier Continue. Related to Hyper lipidemia, unspecified hyperlipidemia type Continue a healthy d iet, exercise, and weight loss as appropriate. Related to Obesity (BMI 30.0-34.9) Declines a Flu shot. Related to Encounter for immunization Get appropriate vaccines. Relate d to Encounter for annual health examination Disease process Given lab requisitio n for lipid panel and cmp Related to Other and unspecified hyperlipidemia she states she hussein ed water coolers in each hand- 'several gallons'. She notes she has discomfort at left elbow. She has not used nsaids or ice. Related to Left elbow tendonitis States for 2 days sh e has left ear pain. No fever. Related to Left otitis media, unspecified otitis media type Prescribed activity/ exercise education Related to Body mass index (BMI) 30.0-30.9, adult Dietary management e ducation, guidance, and counseling Related to Body mass index (BMI) 30.0-30.9, adult Disease process She notes recent leg pain and muscle tightness. States she is on her feet all day- 10-12 hours. No calf pain noted Related to Pain in left leg She notes recent leg pain and muscle tightness. States she is on her feet all day- 10-12 hours. No calf pain noted Related to Pain in right leg She is here today fo r a preventive exam. She is single She does not smoke, rare alcohol use. She sees shirt creaser for well woman exams, states she had mammogram earlier this year at [facility]. She declines further vaccines, had 2 COVID vaccines and one booster. She had a colonoscopy in Oct 2022. She works in construction, outside much of the time. Related to Encounter for general adult medical examination without abnormal findings She will continue to work on management. Related to Grief Dietary management e ducation, guidance, and counseling Related to Body mass index (BMI) 30.0-30.9, adult Prescribed activity/ exercise education Related to Body mass index (BMI) 30.0-30.9, adult Disease process She lost her mother about 4 months ago and is continuing to feel sad, tearful. She denies thoughts of hurting herself or others. She states she would be interested in grief counseling/group. Related to Grief She notes she called her 'teledoc' through her employer and was given course of Augmentin about 4 days ago. She states her symptoms are persisting. She states her previous provider used to give her 'a steroid shot' with antibiotic. She notes she had negative COVID test today. She notes she has pain across her forehead, behind her eyes She notes warm towel over forehead and on her neck is comforting. Related to Sinusitis, unspecified chronicity, unspecified location Dietary management e ducation, guidance, and counseling Related to Body mass index (BMI) 29.0-29.9, adult Disease process Prescribed activity/ exercise education Related to Body mass index (BMI) 29.0-29.9, adult Try OTC NSAIDs and call results. Related to Acute midline thoracic back pain Dietary management e ducation, guidance, and counseling Related to Body mass index (BMI) 29.0-29.9, adult Giving encouragement to exercise Related to Body mass index (BMI) 29.0-29.9, adult Disease process Can contact me if wa nts anything different and medication. Related to Anxiety Check TSH, further to follow. Re lated to Fatigue, unspecified type Check EKG, further to follow. Re lated to Chest pain, unspecified type Follow a low cholest srikanth diet and check CMP and lipids. Related to Hyperlipidemia, unspecified hyperlipidemia type Disease process Go for a colonoscopy. Related to Screening for colon cancer Stop all stool softe ners and observe. Related to Constipation, unspecified constipation type Disease process She states she is do ing pretty well currently. Will advise if symptoms change. Related to Seasonal allergies Reviewing labs, she states she wants to continue to work on healthy diet and exercise before beginning to use any medication. Related to Mixed hyperlipidemia Prescribed activity/ exercise education Related to Body mass index (BMI) 28.0-28.9, adult Disease process Dietary management e ducation, guidance, and counseling Related to Body mass index (BMI) 28.0-28.9, adult Assessments Type Assessment Date assessment Encounter for annual health exam ination assessment Obesity (BMI 30.0-34.9) 024 assessment Hyperlipidemia, unspecified hype rlipidemia type assessment Encounter for immunization Mental Status Date Cognitive Assessment Orientation - [place] ed to time, place, person, situation. Patient Care Teams Name Effective Dates (start - stop) Status Members No Information
== END 2024-10-12 07:15 | disposition home or self-care (01) ==
PROVIDERS: PCP Internal Medicine; Visit Provider Obstetrics & Gynecology
DX: Z12.31 Encounter for screening mammogram for malignant neoplasm of breast (principal)
CPT/HCPCS: 77063; 77067